=== PATIENT | male | born 1990 | race African-American/Black ===

== ENCOUNTER 2017-01-22 15:06 | Emergency (ER) | payer BC ==
[~2017-01-22] VITALS: Ht 175.3 cm; Wt 94.0 kg
[2017-01-22 15:08] VITALS: BP 137/86; PULSE 128; RESP 16; TEMP 99.9; O2SAT 100
--- NOTE | 2017-01-22 15:18 | PD ---
Physical Exam Date Seen by Provider: Jan 22, 2017 Time Seen by Provider: 15:15 Narrative 26-year-old Afro-Armenian male presents to the emergency department WITH acute onset fever, chills, bodyaches, nausea, vomiting. He denies headache or sore throat. No cough or chest congestion. Decreased urine output is noted. He denies burning with urination or diarrhea. This started this morning. He has no known drug allergies. Pain is generalized an 8 out of 10. He denies specific Fever. Labs ordered including CBC, CMP, urinalysis, and rapid influenza. Vital Signs Stable. Awaiting bed placement. Data Data Last Documented VS Vital Signs Date Time Temp Pulse Resp B/P (MAP) Pulse Ox O2 Delivery O2 Flow Rate FiO2 01/22/17 19:20 01/22/17 18:01 103.1 102 18 100 Room Air Orders Orders Complete Blood Count With Diff (01/22/17 15:18) Comprehensive Metabolic Panel (01/22/17 15:18) Lipase (01/22/17 15:18) Lactic Acid (01/22/17 15:18) Urinalysis - C+S If Indicated (01/22/17 15:18) Influenzae A/B Antigen (01/22/17 15:18) Sodium Chlor 0.9% 1000 Ml Inj (Ns 1000 M (01/22/17 16:00) Ondansetron Inj (Zofran Inj) (01/22/17 16:00) Oral Rehydration (01/22/17 17:53) Sodium Chlor 0.9% 1000 Ml Inj (Ns 1000 M (01/22/17 18:00) Promethazine Inj (Phenergan Inj) (01/22/17 18:00) Acetaminophen (Tylenol) (01/22/17 18:15) Metoclopramide Inj (Reglan Inj) (01/22/17 19:00) Labs Laboratory Tests Test 01/22/17 15:53 01/22/17 16:00 01/22/17 17:00 White Blood Count 7.9 TH/MM3 Red Blood Count 6.80 MIL/MM3 Hemoglobin 14.8 GM/DL Hematocrit 47.6 % Mean Corpuscular Volume 70.0 FL Mean Corpuscular Hemoglobin 21.8 PG Mean Corpuscular Hemoglobin Concent 31.2 % Red Cell Distribution Width 13.2 % Platelet Count 194 TH/MM3 Mean Platelet Volume 9.5 FL Neutrophils (%) (Auto) 89.9 % Lymphocytes (%) (Auto) 5.4 % Monocytes (%) (Auto) 4.6 % Eosinophils (%) (Auto) 0.0 % Basophils (%) (Auto) 0.1 % Neutrophils # (Auto) 7.1 TH/MM3 Lymphocytes # (Auto) 0.4 TH/MM3 Monocytes # (Auto) 0.4 TH/MM3 Eosinophils # (Auto) 0.0 TH/MM3 Basophils # (Auto) 0.0 TH/MM3 CBC Comment DIFF FINAL Differential Comment Blood Urea Nitrogen 19 MG/DL Creatinine 1.34 MG/DL Random Glucose 106 MG/DL Total Protein 8.1 GM/DL Albumin 4.1 GM/DL Calcium Level 9.1 MG/DL Alkaline Phosphatase 49 U/L Aspartate Amino Transf (AST/SGOT) 14 U/L Alanine Aminotransferase (ALT/SGPT) 25 U/L Total Bilirubin 1.5 MG/DL Sodium Level 138 MEQ/L Potassium Level 3.6 MEQ/L Chloride Level 106 MEQ/L Carbon Dioxide Level 24.7 MEQ/L Anion Gap 7 MEQ/L Estimat Glomerular Filtration Rate 79 ML/MIN Lipase 120 U/L Lactic Acid Level 1.9 mmol/L Urine Color YELLOW Urine Turbidity CLEAR Urine pH 6.5 Urine Specific [place] 1.028 Urine Protein TRACE mg/dL Urine Glucose (UA) NEG mg/dL Urine Ketones 10 mg/dL Urine Occult Blood NEG Urine Nitrite NEG Urine Bilirubin NEG Urine Urobilinogen LESS THAN 2.0 MG/DL Urine Leukocyte Esterase NEG Urine WBC 1 /hpf Microscopic Urinalysis Comment CULT NOT INDICATED MDM Medical Record Reviewed: Yes Supervised Visit with MITESH: Yes Scripts Ondansetron Odt (Zofran Odt) 4 Mg Tab 4 MG SL Q6HR Y for Nausea/Vomiting, #15 TAB 0 Refills Prov: Nithya Snyder MD 01/22/17 Condition: Stable Evelio Brandt Jan 22, 2017 15:18
[2017-01-22] MEDS ORDERED: ONDANSETRON HCL 4 MG/2 ML VIAL IV PUSH ONE (16:00)
[2017-01-22] MEDS ORDERED: SODIUM CHLOR 0.9% 1000 ML INJ 1,000 ML IV ONE ×2 (16:00→18:00)
--- NOTE | 2017-01-22 16:07 | PD ---
HPI Chief Complaint: GI Complaint Time Seen by Provider: 15:50 Travel History International Travel<30 days: No Contact w/Intl Traveler<30days: No Traveled to known affect area: No History of Present Illness HPI 26 y/o male presents with body aches, chills, nonbloody emesis and general ill feeling that started last evening. He denies any sick contacts or other concurrent complaints. He states that he feels worse when he moves around. He denies other modifying factors. Quality is nonbloody. Severity is multiple episodes. Duration is since last night. He denies getting a flu shot this year. PFSH Past Medical History Medical History: Denies Significant Hx Hx Anticoagulant Therapy: No Cardiovascular Problems: No Chemotherapy: No Cerebrovascular Accident: No Diabetes: No Respiratory: No Past Surgical History Surgical History: No Previous Surgery Social History Alcohol Use: No Tobacco Use: No Substance Use: No Allergies-Medications (Allergen,Severity, Reaction): Coded Allergies: No Known Allergies (Unverified , 01/22/17) Reported Meds & Prescriptions Reported Meds & Active Scripts Active Zofran Odt (Ondansetron Odt) 4 Mg Tab 4 Mg SL Q6HR PRN Review of Systems Except as stated in HPI: all other systems reviewed are Neg Physical Exam Narrative GENERAL: Well-nourished, well-developed patient. SKIN: Warm and dry. HEAD: Normocephalic and atraumatic. EYES: No injection or drainage. ENT: No nasal drainage noted. NECK: Supple, trachea midline. CARDIOVASCULAR: Regular rate and rhythm RESPIRATORY: Breath sounds equal bilaterally. No accessory muscle use. GASTROINTESTINAL: Abdomen soft, non-tender, nondistended. EXTREMITIES: No edema. BACK: Nontender without obvious deformity. NEUROLOGICAL: Awake and alert. Motor and sensory grossly within normal limits. Normal speech. Data Data Last Documented VS Orders Orders Complete Blood Count With Diff (01/22/17 15:18) Comprehensive Metabolic Panel (01/22/17 15:18) Lipase (01/22/17 15:18) Lactic Acid (01/22/17 15:18) Urinalysis - C+S If Indicated (01/22/17 15:18) Influenzae A/B Antigen (01/22/17 15:18) Sodium Chlor 0.9% 1000 Ml Inj (Ns 1000 M (01/22/17 16:00) Ondansetron Inj (Zofran Inj) (01/22/17 16:00) Oral Rehydration (01/22/17 17:53) Sodium Chlor 0.9% 1000 Ml Inj (Ns 1000 M (01/22/17 18:00) Promethazine Inj (Phenergan Inj) (01/22/17 18:00) Acetaminophen (Tylenol) (01/22/17 18:15) Metoclopramide Inj (Reglan Inj) (01/22/17 19:00) Labs Laboratory Tests Test 01/22/17 15:53 01/22/17 16:00 01/22/17 17:00 White Blood Count 7.9 TH/MM3 Red Blood Count 6.80 MIL/MM3 Hemoglobin 14.8 GM/DL Hematocrit 47.6 % Mean Corpuscular Volume 70.0 FL Mean Corpuscular Hemoglobin 21.8 PG Mean Corpuscular Hemoglobin Concent 31.2 % Red Cell Distribution Width 13.2 % Platelet Count 194 TH/MM3 Mean Platelet Volume 9.5 FL Neutrophils (%) (Auto) 89.9 % Lymphocytes (%) (Auto) 5.4 % Monocytes (%) (Auto) 4.6 % Eosinophils (%) (Auto) 0.0 % Basophils (%) (Auto) 0.1 % Neutrophils # (Auto) 7.1 TH/MM3 Lymphocytes # (Auto) 0.4 TH/MM3 Monocytes # (Auto) 0.4 TH/MM3 Eosinophils # (Auto) 0.0 TH/MM3 Basophils # (Auto) 0.0 TH/MM3 CBC Comment DIFF FINAL Differential Comment Blood Urea Nitrogen 19 MG/DL Creatinine 1.34 MG/DL Random Glucose 106 MG/DL Total Protein 8.1 GM/DL Albumin 4.1 GM/DL Calcium Level 9.1 MG/DL Alkaline Phosphatase 49 U/L Aspartate Amino Transf (AST/SGOT) 14 U/L Alanine Aminotransferase (ALT/SGPT) 25 U/L Total Bilirubin 1.5 MG/DL Sodium Level 138 MEQ/L Potassium Level 3.6 MEQ/L Chloride Level 106 MEQ/L Carbon Dioxide Level 24.7 MEQ/L Anion Gap 7 MEQ/L Estimat Glomerular Filtration Rate 79 ML/MIN Lipase 120 U/L Lactic Acid Level 1.9 mmol/L Urine Color YELLOW Urine Turbidity CLEAR Urine pH 6.5 Urine Specific [place] 1.028 Urine Protein TRACE mg/dL Urine Glucose (UA) NEG mg/dL Urine Ketones 10 mg/dL Urine Occult Blood NEG Urine Nitrite NEG Urine Bilirubin NEG Urine Urobilinogen LESS THAN 2.0 MG/DL Urine Leukocyte Esterase NEG Urine WBC 1 /hpf Microscopic Urinalysis Comment CULT NOT INDICATED MDM Medical Decision Making Medical Screen Exam Complete: Yes Emergency Medical Condition: Yes Medical Record Reviewed: Yes (pmh confirmed) Interpretation(s) CBC & BMP Diagram 01/22/17 15:53 Total Protein 8.1, Albumin 4.1, Calcium Level 9.1, Alkaline Phosphatase 49, Aspartate Amino Transf (AST/SGOT) 14 L, Alanine Aminotransferase (ALT/SGPT) 25, Total Bilirubin 1.5 H Differential Diagnosis Gastroenteritis, diverticulitis, influenza, renal failure, colitis Narrative Course Will check blood work, urinalysis and dose with IV fluids and reevaluate heart rate has improved after IV fluid hydration but patient has developed fever. Will dose with Tylenol and Phenergan and reevaluate Patient denies any new complaints and states that they are feeling better. No further emesis here, Patient happy with care, all questions answered. Patient knows that follow up is incumbent on them and to return to the emergency room immediately if new or worsening symptoms develop. Patient given strict return precautions, vitals reviewed and are normal, agrees to further workup as an outpatient. Physician Communication Physician Communication dr schwab will reassess after medication and change plan if symptoms change or vitals don't improve Diagnosis Primary Impression: Fever Qualified Codes: R50.9 - Fever, unspecified Additional Impressions: Body aches Vomiting Qualified Codes: R11.2 - Nausea with vomiting, unspecified Patient Instructions: General Instructions Additional Instructions: return as needed, alternate tylenol and motrin, follow with primary tommorrow for recheck Med/Other Pt SpecificInfo: Prescription(s) given Scripts Ondansetron Odt (Zofran Odt) 4 Mg Tab 4 MG SL Q6HR Y for Nausea/Vomiting, #15 TAB 0 Refills Prov: Nithya Snyder MD 01/22/17 Disposition: 01 DISCHARGE HOME Condition: Stable Nithya Snyder MD Jan 22, 2017 16:07
[2017-01-22 16:08] LABS: AUTOMATED NEUTROPHIL # 7.1 TH/MM3 (1.8-7.7); BASOPHIL % 0.1 % (0.0-2.0); HEMATOCRIT 47.6 % (39.0-51.0); HEMO FLAGS DIFF FINAL; LYMPH % 5.4 % (9.0-44.0); LYMPHOCYTE # 0.4 TH/MM3 (1.0-4.8); MEAN CORPUSCULAR HEMOGLOBIN 21.8 PG (27.0-34.0); MEAN CORPUSCULAR HGB CONC 31.2 % (32.0-36.0); MONO % 4.6 % (0.0-8.0); NEUT % 89.9 % (16.0-70.0); PLATELET COUNT 194 TH/MM3 (150-450); RED CELL DISTRIBUTION WIDTH 13.2 % (11.6-17.2); WHITE BLOOD COUNT 7.9 TH/MM3 (4.0-11.0)
[2017-01-22 16:28] LABS: ANION GAP 7 MEQ/L (5-15); AST (GOT) 14 U/L (15-37); BICARBONATE 24.7 MEQ/L (21.0-32.0); BLOOD UREA NITROGEN 19 MG/DL (7-18); CHLORIDE 106 MEQ/L (98-107); GLOMERULAR FILTRATION RATE 79 ML/MIN (>89); POTASSIUM 3.6 MEQ/L (3.5-5.1); SODIUM (NA) 138 MEQ/L (136-145)
[2017-01-22 16:30] LABS: ALKALINE PHOSPHATASE 49 U/L (45-117); ALT (GPT) 25 U/L (12-78); TOTAL BILIRUBIN ADULT 1.5 MG/DL (0.2-1.0)
[2017-01-22 17:24] LABS: BLOOD, URINE NEG (NEG); COMMENT (UR) CULT NOT INDICATED; CULTURE IF INDICATED CULT NOT INDICATED; GLUCOSE,URINE NEG (NEG); KETONE, URINE 10 mg/dL (NEG); NITRITE,URINE NEG (NEG); PH, URINE 6.5 (5.0-8.5); URINE COLOR YELLOW (YELLW/STRAW)
[2017-01-22] MEDS ORDERED: PROMETHAZINE INJ 25 MG/ML VIAL IM ONE (18:00)
[2017-01-22 18:01] VITALS: BP 117/56; PULSE 102; RESP 18; TEMP 103.1; O2SAT 100
[2017-01-22] MEDS ORDERED: ACETAMINOPHEN 325 MG TAB PO ONE (18:15)
[2017-01-22] MEDS ORDERED: ZOFR4TAB3 SL (18:44)
[2017-01-22] MEDS ORDERED: METOCLOPRAMIDE HCL 10 MG/2 ML VIAL IV PUSH ONE (19:00)
== END 2017-01-22 19:20 | disposition home or self-care (01) ==
LOC: NEPC 15:06
DX: R50.9 Fever, unspecified (principal); M79.1 Myalgia; R11.2 Nausea with vomiting, unspecified
CPT/HCPCS: 80053; 81001; 83605; 83690; 85025; 87804; 96360; 96361; 96372; 99284; J2405; J2550; J7030